=== PATIENT | female | born 1955 | race Caucasian/White ===

== ENCOUNTER → 2017-03-11 12:09 | Outpatient (CLI) | payer MEDICARE, BC ==
[2011-08-21 13:41] VITALS: BMI 38.6
[~2017-03-11 12:09] MED LIST: ATIVAN1 MG PO; DESERYL100 MG PO; ELIQUIS2.5 MG PO; FLUTICASONE PRO16 GM NASAL; HYDROCODONE-APA1 TAB PO; LOPRESSOR25 MG PO; MAXALT10 MG PO; MULTIPLE VITAMI1 TA1 PO; NEXIUM40 MG PO; PERCOCET 10/3251 TA1 PO; PROZAC40 MG PO; TUMERIC PO
[2017-04-06 13:22] VITALS: BMI 39.0
== END | disposition home or self-care (01) ==
LOC: D.LABREF 12:09
DX: M17.12 Unilateral primary osteoarthritis, left knee (principal); Z11.8 Encounter for screening for other infectious and parasitic diseases

== ENCOUNTER 2017-04-01 10:00 | Inpatient (IN) | payer MEDICARE, BC, OTHER ==
[~2017-04-01] VITALS: Ht 160 cm; Wt 100.0 kg
[~2017-04-01 10:00] MED LIST changes: -ELIQUIS2.5 MG PO; -PERCOCET 10/3251 TA1 PO
[2017-04-01 12:19] LABS: BASOPHILS 0.5 % (0-2); EOSINOPHILS 1.3 % (0-7); HEMATOCRIT 40.6 % (36.0-48.0); HEMOGLOBIN 13.2 g/dL (12-16); IMMATURE GRANULOCYTES 0.4 % (0-5); LYMPHOCYTES 36.4 % (15-50); MCH 29.6 pg (26.0-34.0); MCHC 32.5 g/dL (31.0-37.0); MEAN PLATELET VOLUME 8.5 fL (7.4-10.4); MONOCYTES 6.9 % (2-11); NEUTROPHILS 54.5 % (40-80); RBC 4.46 10x6/uL (4.00-5.40); RDW 13.3 % (11.5-14.5); WBC 8.3 10x3/uL (4.8-10.8)
[2017-04-01 12:24] LABS: PLATELET COUNT 218 10x3/uL (130-400)
[2017-04-01 12:29] LABS: CALC OSMOLALITY 279 mosm/kg (275-300); CARBON DIOXIDE 26.1 mmol/L (21.0-32.0); CHLORIDE - SERUM 102 mmol/L (98-107); CREATININE - SERUM 0.8 mg/dL (0.6-1.3); GLUCOSE 99 mg/dL (74-106); POTASSIUM - SERUM 4.3 mmol/L (3.5-5.1); SODIUM 139 mmol/L (136-145); UREA NITROGEN 19 mg/dL (7-18); eGFR NON AFRICAN AMERICAN 77 mL/min (90-120)
[2017-04-01 12:30] LABS: APTT 22.7 SECONDS (22.8-39.4); INR 0.93 (0.85-1.17); PROTIME 12.4 SECONDS (11.6-15.0)
[2017-04-01 12:56] LABS: APPEARANCE HAZY (CLEAR); BILIRUBIN NEGATIVE (NEGATIVE); COLOR YELLOW (YELLOW); GLUCOSE NEGATIVE (NEGATIVE); KETONE NEGATIVE (NEGATIVE); NITRITE NEGATIVE (NEGATIVE); PROTEIN NEGATIVE (NEGATIVE); SPECIFIC GRAVITY 1.015 (1.005-1.020); UROBILINOGEN NORMAL (NORMAL)
[2017-04-06] VITALS (9 sets, daily range): BP systolic 86–118; BP diastolic 49–71; Ht 160 cm; Wt 100.0 kg
--- NOTE | 2017-04-06 13:15 | NUR ---
RECEIVED TO ROOM 2210 VIA BED FROM PACU. A/O X3. NO C/O PAIN OR DISCOMFORT AT THIS TIME. FAMILY AT BEDSIDE. DRESSING TO LEFT KNEE DRY AND INTACT. INSTRUCTED IN USE OF IS WITH RETURN DEMONSTRATION.
--- NOTE | 2017-04-06 13:18 | OP ---
PATIENT NAME: APPLE ADLER MEDICAL RECORD: [id number] :57 LOCATION:[id number] ADMISSION DATE:04/06/17 SURGEON: EZ MAXWELL MD DATE OF OPERATION: 04/06/2017 PREOPERATIVE DIAGNOSIS: Degenerative arthritis of the left knee. POSTOPERATIVE DIAGNOSIS: Degenerative arthritis of the left knee. PROCEDURE: Left total knee arthroplasty. SURGEON: Ez Maxwell MD ANESTHESIA: General. INTRAOPERATIVE COMPLICATIONS: None. SUMMARY OF PATHOLOGIC FINDINGS: The patient had extensive osteoarthritis, tricompartmental consistent with the preoperative radiographs. IMPLANTS USED: Lane press-fit triathlon total knee arthroplasty system, size 4 distal femur, size 4 tibial component, size 9-mm polyethylene, size 31 and 9 mm patellar component. OPERATIVE SUMMARY IN DETAIL: After obtaining the appropriate preoperative orthopedic surgery consent as well as anesthetic consultation, evaluation and clearance, the patient was brought to the operating room and placed on the operating table in supine position. After adequate general laryngeal mask airway was administered, tourniquet was placed about the proximal aspect of left lower extremity. Left lower extremity was then prepped and draped in routine sterile fashion. The leg was elevated and exsanguinated, tourniquet inflated to 350 mmHg. Routine midline incision was taken down for paramedian arthrotomy. Patella was everted, distal femur was exposed. Soft tissue excision was done in the usual fashion. Distal intramedullary guide hole was created for distal intramedullary guided cuts. Distal femoral cut was made. This was followed by complete exposure of the proximal tibia. Further soft tissue excision was followed by creation of a tibial guide hole for intramedullary guidance. Proximal tibial cut. Appropriate measurements were made. Chamfer cuts were made on the distal femur. Trials corresponding to the above were put into place, taken through range of motion, and found to be excellent and stable in all planes. Distal femoral and proximal tibial preparation was then followed by excision of the arthritic articular surface of the patella. Final patellar preparation was made. This was followed by pulsatile irrigation of the entire knee cavity. Bone ends were dried. Components were seated into place. Good fit and fill. The knee was taken through range of motion and found to be in good alignment in all planes. Paramedian arthrotomy was closed with #2 Ethibond followed by #1 Vicryl, 2-0 Vicryl, and skin ruiz. Sterile dressings were applied. The patient was awakened and taken to the recovery room in stable condition. All final needle and sponge counts were correct. TRANSINT:[id number] Voice Confirmation ID: [id number] DOCUMENT ID: [id number] OPERATIVE REPORT [id number] APPLE ADLER MD, EZ AVILEZ at 1318 CC: [id number] DICTATION DATE: 04/06/17 1211 SUPERCHARGE REPAIR SUPERVISOR: 04/06/17 1301 ADM IN [place] [id number] [place] [id number]
--- NOTE | 2017-04-06 15:08 | NUR ---
BP IS RUNNING SOMEWHAT LOW. DR WERNER IN ROOM AND MADE AWARE OF SAME. NO NEW ORDERS AT THIS TIME.
--- NOTE | 2017-04-07 00:35 | NUR ---
1943) REC'D. IN BED.IN CPM MACHINE. NELL. WELL ACEWRAP DRSG. DRY AND INTACT.NEUROVASCULAR STATUS WNL. FOOT PINK AND WARM PEDAL PULSE PRESENT. STATES LEG REMAINS NUMB STILL.WILL CONTINUE TO MONITOR FOR ANY CHGES. AND FOLLOW CURRENT PLAN OF CARE.
[2017-04-07 04:00] VITALS: BP 110/70
[2017-04-07 06:10] LABS: BASOPHILS 0.1 % (0-2); EOSINOPHILS 0 % (0-7); HEMATOCRIT 36.2 % (36.0-48.0); IMMATURE GRANULOCYTES 0.2 % (0-5); LYMPHOCYTES 12.2 % (15-50); MCH 29.7 pg (26.0-34.0); MCHC 33.1 g/dL (31.0-37.0); MCV 89.6 fL (80.0-100.0); MEAN PLATELET VOLUME 8.8 fL (7.4-10.4); MONOCYTES 7.2 % (2-11); NEUTROPHILS 80.3 % (40-80); PLATELET COUNT 233 10x3/uL (130-400); RBC 4.04 10x6/uL (4.00-5.40); RDW 13.3 % (11.5-14.5); WBC 14.2 10x3/uL (4.8-10.8)
[2017-04-07 06:44] LABS: ALBUMIN 3.1 g/dL (3.4-5.0); ANION GAP 14.1 mmol/L (8-16); BILIRUBIN - TOTAL 0.25 mg/dL (0.2-1.3); CALCIUM 8.1 mg/dL (8.5-10.1); CARBON DIOXIDE 24.9 mmol/L (21.0-32.0); PROTEIN - SERUM 6.6 g/dL (6.4-8.2)
--- NOTE | 2017-04-07 08:26 | NUR ---
AWAKE AND ALERT. ORIENTED X3. NO C/O AT THIS TIME. LUNGS ARE CLEAR BILATERALLY, NO COUGH NOTED. REPORTS USING IS INSTRUCTED. SKIN IS INTACT IWTHOUT REDNESS EXCEPT INCISION TO LEFT KNEE WHICH HAS A DRY INTACT DRESSING IN PLACE. ON CPM AT THIS TIME. IV TO LEFT HAND/WRIST PATENT WITHOUT REDNESS AT INSERTION SITE. AT BEDSIDE. DENIES NEEDS.
[2017-04-07 09:27] VITALS: BP 111/70
--- NOTE | 2017-04-07 10:00 | NUR ---
UP IN CHAIR AT BEDSIDE PER PT. REPORTS GOOD RELIEF WITH USE OF PERCOCET.
--- NOTE | 2017-04-07 11:22 | NUR ---
Patient Name: APPLE ADLER Admission Status: Elective Accout number: [id number] Admission Date: 04-06-2017 : 1955 Admission Diagnosis: Attending: EZ MAXWELL Current LOS: 1 Anticipated DC Date: Planned Disposition: Home Primary Insurance: MEDICARE A & B Discharge Planning Comments: CM met with patient to assess discharge planning needs. Patient lives in [facility] where she is independent at home with her . She plans to do OP PT in [facility] and CM will set that up prior to discharge. She has a walker, bedside commode at home and stated that [facility] has contacted her about delivering the CPM. Patient denies any use or need for HH at this time. She does not have any stairs in her home and her will be the one to drive her home at discharge. CM will continue to follow and assist with discharge planning needs. PCP: Cele Wilson in [facility] Keith () [phone] German Tutor: Khadra Cortes * Is the patient Alert and Oriented? Yes 0 * How many steps to enter\exit or inside your home? 0 0 * PCP Cele 0 * Pharmacy Steve in [facility] 0 * Preadmission Environment Home with Family 0 * ADLs Independent 0 * Equipment Bedside Commode 0 * List name and contact numbers for known caregivers / representatives who currently or will assist patient after discharge: Keith () [phone] 0 * Community resources currently utilized None 0 * Additional services required to return to the preadmission environment? Yes 0 * Can the patient safely return to the preadmission environment? Yes 0 * Has this patient been hospitalized within the prior 30 days at any hospital? No 0 Grand Total: 0
[2017-04-07 13:08] VITALS: BP 133/77
--- NOTE | 2017-04-07 15:09 | NUR ---
REQUESTED AND GIVEN 30MG TORADOL SLOW IVP FOR C/O LEFT KNEE PAIN LEVEL 8. WILL MONITOR.
[2017-04-07 17:01] VITALS: BP 111/64
--- NOTE | 2017-04-07 18:26 | NUR ---
ATE ALL OF SUPPER. NO CHANGES NOTED. DENIES NEEDS. CPM IN PLACE AT THIS TIME.
[2017-04-07 20:00] VITALS: BP 109/70
[2017-04-08 06:06] LABS: BASOPHILS 0.4 % (0-2); EOSINOPHILS 0.8 % (0-7); HEMATOCRIT 31.5 % (36.0-48.0); HEMOGLOBIN 10.3 g/dL (12-16); IMMATURE GRANULOCYTES 0.6 % (0-5); LYMPHOCYTES 34.6 % (15-50); MCH 29.7 pg (26.0-34.0); MCHC 32.7 g/dL (31.0-37.0); MCV 90.8 fL (80.0-100.0); MEAN PLATELET VOLUME 8.6 fL (7.4-10.4); MONOCYTES 11.8 % (2-11); NEUTROPHILS 51.8 % (40-80); RBC 3.47 10x6/uL (4.00-5.40); RDW 13.6 % (11.5-14.5)
[2017-04-08 06:07] LABS: PLATELET COUNT 168 10x3/uL (130-400); WBC 7.2 10x3/uL (4.8-10.8)
[2017-04-08 06:39] LABS: ALBUMIN 2.8 g/dL (3.4-5.0); ANION GAP 8.6 mmol/L (8-16); BILIRUBIN - TOTAL 0.18 mg/dL (0.2-1.3); CALCIUM 8.2 mg/dL (8.5-10.1); CREATININE - SERUM 0.9 mg/dL (0.6-1.3); POTASSIUM - SERUM 3.6 mmol/L (3.5-5.1); PROTEIN - SERUM 6.1 g/dL (6.4-8.2)
--- NOTE | 2017-04-08 07:10 | NUR ---
REPORT RECEIVED, ASSUMED CARE OF PT. NO NEEDS VOICED AT THIS TIME.
[2017-04-08 08:04] VITALS: BP 109/61
[2017-04-08] MEDS ORDERED: ELIQUIS2.5 MG PO (08:39)
[2017-04-08] MEDS ORDERED: PERCOCET 10/3251 TA1 PO (08:39)
--- NOTE | 2017-04-08 10:35 | NUR ---
Patient set up with OP PT at [facility] in [place] for Apr 10 at 7:45am. The CPM will be delivered to the hospital and PT will teach and pt how to set and use machine. CM will continue to follow and assist with discharge planning needs.
--- NOTE | 2017-04-08 11:08 | NUR ---
DISCHARGE INSTRUCTIONS GIVEN TO PT ORDERED, VERBALIZED UNDERSTANDING AND SIGNED. L FOREARM IV D/C'D, BLEED CONTROL, BANDAGE APPLIED. L KNEE DRSG C/D/I, INSTRUCTIONS GIVEN ORDERED TO CHANGE. NO NEEDS VOICED AT THIS TIME.
== END 2017-04-08 12:51 | disposition home or self-care (01) | DRG 470 ==
LOC: D.SDCHOLD 10:00 → D.MS 04-06 05:35 → D.SDCHOLD 04-06 09:40 → D.MS 04-06 12:54 → D.SDCHOLD 04-06 13:20 → D.MS 04-08 12:51
PROVIDERS: Family Medicine; ADMIT Orthopaedic Surgery
PROC: 0SRD0JA Replacement of Left Knee Joint with Synthetic Substitute, Uncemented, Open Approach (ICD-10-PCS; principal; 2017-04-06 11:00)
DX: M17.12 Unilateral primary osteoarthritis, left knee (principal); I10 Essential (primary) hypertension; F41.8 Other specified anxiety disorders; G89.29 Other chronic pain; K21.9 Gastro-esophageal reflux disease without esophagitis; R73.9 Hyperglycemia, unspecified